=== PATIENT | female | born 1965 | race Hispanic/Latino ===

== ENCOUNTER → 2018-02-04 | Day surgery (SDC) | payer OTHER ==
[~2018-02-04] MED LIST: BENICAR5 MG PO; FENTANYL CITRATE/PF 100MCG/2 ML INJ ONE; HYOSCYAMINE SULFATE 0.5 MG/ML INJ ONE; LIDOCAINE HCL 2% LOCAL INJ 5 ML SDV VIAL INJ ONE; MIDAZOLAM HCL 2 MG/2 ML VIAL ONE; PROPOFOL IV EMULSION 10 MG/ML 50 ML VIAL ONE; VIT B12 INJ
[2018-02-04 17:00] VITALS: BP 134/88
--- NOTE | 2018-02-04 17:57 | Operative Report ---
DATE OF PROCEDURE: February 04, 2018 REFERRING PHYSICIAN: Dr. Art Stratton. PROCEDURE PERFORMED: Colonoscopy and polypectomy. INDICATIONS FOR COLONOSCOPY: Colorectal cancer screening. MEDICATION: Patient was done under MAC. Please see anesthesiologist's note. PROCEDURE: With the patient in the left lateral decubitus position, the flexible fiberoptic Olympus colonoscope was inserted into the rectum with ease and advanced all the way to the cecum. The scope was then withdrawn slowly, and the mucosa overlying the cecum, ascending colon and transverse colon appeared to be within normal limits. One polyp was hot biopsied from the descending colon. There was some diverticular disease in the sigmoid colon. One polyp was hot biopsied from the sigmoid. One minute hyperplastic-appearing polyp was hot biopsied from the rectum. The scope was then retroflexed into the distal rectum and small internal hemorrhoids were noted, none of which was actively bleeding. The scope was then straightened out. It was subsequently withdrawn. Patient tolerated the procedure well. IMPRESSION: 1. Descending colon polyp hot biopsied. 2. Diverticulosis. 3. Sigmoid colon polyp hot biopsied. 4. Rectal polyp hot biopsied. 5. Internal hemorrhoids, none actively bleeding. PLAN: Follow up histology. Initiate high-fiber low-fat diet. Initiate high-fiber supplement. Patient might benefit from a followup colonoscopy in 2 to 3 years considering her strong family history of colon cancer. Job#: [id number] EV cc:ART STRATTON MD
--- OUTSIDE RECORDS SUMMARY | 2018-02-12 12:06 | XMS REPORT | Clinical Summary ---
Author Author EDD[facility] Address Unknown Phone Unavailable Care Team Providers Care Water Pollution Control Inspector Name Role Phone PCP Unavailable Allergies Active Allergy Reactions Severity Noted Date Comments Sulfa (Sulfonamide 11/04/2012 hives Antibiotics) Current Medications Prescription Sig. Disp. Refills Start End Date Status Date olmesartan (BENICAR) 20 Take 1 tablet (20 mg 90 tablet 3 05/15/19 Active MG tablet total) by mouth daily. 15 rosuvastatin (CRESTOR) 10 Take 1 tablet (10 mg 90 tablet 2 12/28/19 12/28/19 Active MG tablet total) by mouth daily. 18 19 Active Problems Patient Care Coordination Note 24 years for Aung (mult name changes) Brother of PE 70 (different brother had Colon Cancer). Father healthy, Mother with diabetes and pancreatic cancer. Dr. Su Customer Account Representative, Mammo June PAP September 2017 Problem Noted Date Malaise 01/31/2018 Myalgia 01/31/2018 Pain of both shoulder joints 01/31/2018 Pure hypercholesterolemia 12/28/2017 Overview: For years, creeping up, last with Dr. Su. TL 224, HDL 71,(dropping) trig 146, LDL 124 (increasing) Started rosuvastatin Family history of pancreatic cancer 12/27/2017 Overview: Mother age 66 Family history of colon cancer 12/27/2017 Overview: Brother age 52, now 68. Thyroid nodule 12/27/2017 Overview: Found at work screen 7.3 x 4.2 mm (right side 11/06/2017 Thyroid US with nodules. Heterogenous. "consistent with thyroiditis" Negative Thyroid peroxidase The thyroid levels are all normal. They are on the lower side of normal. I see no reason to add a medication. We can check the ultrasound yearly for a while to be sure nodules are not growing. Lumbar facet arthropathy (HCC) 08/13/2013 Overview: Back Pain, Theodora GUSMAN. [facility] [place] Morning achiness Diverticulosis 08/13/2013 Overview: 2013, No sx (colonoscopy for abd Pain) Theodora Allen. Abdominal pain 08/13/2013 Overview: Migrated mod bilateral abd to back Colonoscopy negative. Dr. eRnzo Plasencia CT abd. At Patient's [place] Pelvic US By Dr. Su Ongoing sx, mold on and off, LBP and abd pain BMI 28.0-28.9,adult 08/13/2013 Overview: Weight has been up and down. As low as 162,, BMI as high as 29.95 2014 Essential hypertension 11/06/2012 Impaired glucose tolerance 11/06/2012 Encounters Date Type Specialty Care Team Description 01/31/2018 Office Visit Internal Medicine Pato Corrales MD Myalgia (Primary Dx);Malaise;Pain of both shoulder joints;Essential hypertension;Pure hypercholesterolemia;Impa ired glucose tolerance;Lumbar facet arthropathy (HCC) 01/31/2018 Telephone Internal Medicine Pato Corrales MD Appt 01/31/2018 01/07/2018 Telephone Internal Medicine Pato Corrales MD Results (US thyroid ) 01/04/2018 Hospital Radiology Pato Corrales MD Thyroid nodule Encounter 01/04/2018 Outside Orders Pato Corrales MD 12/27/2017 Office Visit Internal Medicine Pato Corrales MD Thyroid nodule (Primary Dx);Family history of pancreatic cancer;Family history of colon cancer;BMI 28.0-28.9,adult;Colon cancer screening;Diverticulosis of large intestine without hemorrhage;Periumbilical abdominal pain 12/19/2017 Telephone Internal Medicine Pato Corrales MD PCP after 02/03/2017 Immunizations Name Dates Previously Given Next Due Influenza TIV (IM) 01/28/2013 Family History Relation Name Status Comments Brother Alive x3 healthy Daughter Alive healthy Father Dementia (Age 92 yrs) Mother Pancreatic Cancer, HTN, DM (Age 67 yrs) Son Alive healthy Social History Tobacco Use Types Packs/Day Years Used Date Never Smoker Smokeless Tobacco: Never Used Alcohol Use Drinks/Week oz/Week Comments Yes rarely Sex Assigned at Date Recorded Not on file Last Filed Vital Signs Vital Sign Reading Time Taken Blood Pressure 124/72 01/31/2018 3:43 PM CDT Pulse 66 01/31/2018 3:43 PM CDT Temperature - - Respiratory Rate 14 12/27/2017 3:12 PM CDT Oxygen Saturation 99% 01/31/2018 3:43 PM CDT Inhaled Oxygen - - Concentration Weight 78.4 kg (172 lb 12.8 oz) 01/31/2018 3:43 PM CDT Height 165.1 cm (5' 5") 01/31/2018 3:43 PM CDT Body Mass Index 28.76 01/31/2018 3:43 PM CDT Plan of Treatment Date Type Specialty Care Team Description 05/10/2018 Office Visit Internal Medicine Pato Corrales MD [address] [facility] [address] [place], [place] [id number] Health Maintenance Due Date Last Done Comments INFLUENZA VACCINE 01/28/2018 Results * Thyroid peroxidase (TPO) antibody (01/08/2018 7:31 AM) Component Value Ref Range Thyroid Peroxidase (TPO) <1 <9 IU/mL Ab Specimen Performing Laboratory [facility] [place] [address] * TSH (01/08/2018 7:31 AM) Component Value Ref Range TSH 1.10 mIU/L Comment: Reference Range > or=20 Years0.40-4.50 Ranges First trimester0.26-2.66 Second trimester 0.55-2.73 Third trimester0.43-2.91 Specimen Performing Laboratory [facility] [address] [place] [address] * T4, free (01/08/2018 7:31 AM) Component Value Ref Range T4,Free (Direct) 1.1 0.8 - 1.8 ng/dL Specimen Performing Laboratory [facility] [address] [place] [address] * Ultrasound thyroid (01/04/2018 7:27 AM) Specimen Performing Laboratory GE RIS Narrative FINAL REPORT Thyroid ultrasound, today HISTORY: Thyroid nodule COMPARISON: None. FINDINGS: Grayscale and color Doppler imaging of the thyroid gland was performed. The right thyroid lobe measures 5.0 x 1.6 x 1.2 cm. The left thyroid lobe measures 4.2 x 1.6 x 1.2 cm. The isthmus measures 4 mm in thickness. There is mild, diffuse heterogeneity of the thyroid parenchyma. A hypoechoic, avascular nodule or cyst is present in the upper pole right lobe measuring 6 x 5 x 5 mm, without suspicious sonographic features. IMPRESSION: Heterogenous appearance of the thyroid gland suggestive of underlying thyroiditis. Signed: Cleveland Stein MD Report Verified Date/Time:01/04/2018 16:51:18 Reading Location: [address] Radiology Reading Room Procedure Note Interface, External Ris In - 01/04/2018 4:53 PM CDT FINAL REPORT Thyroid ultrasound, today HISTORY: Thyroid nodule COMPARISON: None. FINDINGS: Grayscale and color Doppler imaging of the thyroid gland was performed. The right thyroid lobe measures 5.0 x 1.6 x 1.2 cm. The left thyroid lobe measures 4.2 x 1.6 x 1.2 cm. The isthmus measures 4 mm in thickness. There is mild, diffuse heterogeneity of the thyroid parenchyma. A hypoechoic, avascular nodule or cyst is present in the upper pole right lobe measuring 6 x 5 x 5 mm, without suspicious sonographic features. IMPRESSION: Heterogenous appearance of the thyroid gland suggestive of underlying thyroiditis. Signed: Cleveland Stein MD Report Verified Date/Time: 01/04/2018 16:51:18 Reading Location: [address] Radiology Reading Room after 02/03/2017
--- OUTSIDE RECORDS SUMMARY | 2018-02-12 12:06 | XMS REPORT ---
Author Author [facility] Address Unknown Phone Unavailable Care Team Providers Care Casino Worker Name Role Phone Unavailable Unavailable Problems This patient has no known problems. Allergies, Adverse Reactions, Alerts This patient has no known allergies or adverse reactions. Medications This patient has no known medications. Results Test Description Test Time Test Comments Text Results Atomic Results Result Comments U/S, THYROID 2018-01-04 16:51:00 Reason for Exam:->thyroid nodule FINAL REPORT Thyroid ultrasound, today HISTORY: Thyroid nodule COMPARISON: None. FINDINGS:Grayscale and color Doppler imaging of the thyroid [...] x 5 mm, without suspicious sonographic features. IMPRESSION:Heterogenous appearance of the thyroid gland suggestive of underlying thyroiditis. Signed: Cleveland Chou MDReport Verified Date/Time: 01/04/2018 16:51:18 Reading Location: [address] Radiology Reading Room
== END | disposition home or self-care (01) ==
LOC: OR 13:41
PROVIDERS: ATTEND Internal Medicine Gastroenterology
DX: Z12.11 Encounter for screening for malignant neoplasm of colon (principal); D12.4 Benign neoplasm of descending colon; K62.1 Rectal polyp; K59.00 Constipation, unspecified; K57.30 Diverticulosis of large intestine without perforation or abscess without bleeding; K64.8 Other hemorrhoids; I10 Essential (primary) hypertension; R42 Dizziness and giddiness; Z88.2 Allergy status to sulfonamides; Z68.29 Body mass index [BMI] 29.0-29.9, adult; Z80.0 Family history of malignant neoplasm of digestive organs
CPT/HCPCS: 45384; 81025; J1980; J2001; J2250

== ENCOUNTER → 2018-04-24 | Outpatient (CLI) | payer OTHER ==
[~2018-04-24] MED LIST changes: -FENTANYL CITRATE/PF 100MCG/2 ML INJ ONE; -HYOSCYAMINE SULFATE 0.5 MG/ML INJ ONE; -LIDOCAINE HCL 2% LOCAL INJ 5 ML SDV VIAL INJ ONE; -MIDAZOLAM HCL 2 MG/2 ML VIAL ONE; -PROPOFOL IV EMULSION 10 MG/ML 50 ML VIAL ONE
--- NOTE | 2018-04-24 16:48 | Diagnostic Imaging Report ---
BILATERAL HANDS 3 - views HISTORY: Pain COMPARISON: None FINDINGS: No displaced fracture. Osseous alignment is within normal limits. Mild degenerative changes of the DIP joints bilaterally. Degenerative changes of the right carpometacarpal joint. Tiny well-corticated ossicle projected lateral to the right first carpometacarpal joint; he may reflect prior avulsion injury. IMPRESSION: Degenerative osteoarthrosis. Signed by: Dr. Jorge Alberto Loco M.D. on 04/24/2018 4:44 PM
== END ==
LOC: RAD 15:58
PROVIDERS: ATTEND Internal Medicine Rheumatology
DX: M79.642 Pain in left hand (principal); M79.641 Pain in right hand

== ENCOUNTER → 2020-12-31 | Day surgery (SDC) | payer OTHER ==
[2020-12-31 12:40] VITALS: BP 105/89
== END | disposition home or self-care (01) ==
LOC: OR 09:40
PROVIDERS: ATTEND Internal Medicine Gastroenterology
DX: Z12.11 Encounter for screening for malignant neoplasm of colon (principal); K63.5 Polyp of colon; K57.30 Diverticulosis of large intestine without perforation or abscess without bleeding; K64.8 Other hemorrhoids; I10 Essential (primary) hypertension; R00.1 Bradycardia, unspecified; E78.5 Hyperlipidemia, unspecified; Z88.2 Allergy status to sulfonamides; Z01.810 Encounter for preprocedural cardiovascular examination; Z01.812 Encounter for preprocedural laboratory examination; Z20.822 Contact with and (suspected) exposure to COVID-19; Z80.0 Family history of malignant neoplasm of digestive organs
CPT/HCPCS: 45380; 93005; U0002; 45378

== ENCOUNTER → 2021-12-01 | Outpatient (CLI) | payer OTHER | LOC: US 07:36 | PROVIDERS: ATTEND Family Medicine | DX: E04.1 Nontoxic single thyroid nodule (principal) | CPT/HCPCS: 76536 ==

== ENCOUNTER → 2022-08-14 | Outpatient (CLI) | payer OTHER | LOC: US 07:48 | PROVIDERS: ATTEND Internal Medicine Gastroenterology | DX: R10.84 Generalized abdominal pain (principal); K76.0 Fatty (change of) liver, not elsewhere classified | CPT/HCPCS: 76700; 76856 ==

== ENCOUNTER → 2024-05-02 | Day surgery (SDC) | payer OTHER ==
[~2024-05-02] MED LIST changes: +B-121000 MC2; +LACTATED RINGER'S 1,000 ML ONE; +LIDOCAINE HCL 2% LOCAL INJ 5 ML SDV VIAL INJ ONE; +MAGNESIUM GLYC100 MG; +MULTI-VITAMIN1 EACH PO; +PROPOFOL IV EMULSION 50 ML IV ONE; +ZINC PO
[2024-05-02 09:58] VITALS: TEMP 97.7
[2024-05-02 10:20] VITALS: BP 120/71; PULSE 64; RESP 18; O2SAT 99
== END | disposition home or self-care (01) ==
LOC: OR 08:08
PROVIDERS: ATTEND Internal Medicine Gastroenterology
DX: Z12.11 Encounter for screening for malignant neoplasm of colon (principal); Z86.0100 Personal history of colon polyps, unspecified; K57.30 Diverticulosis of large intestine without perforation or abscess without bleeding; K64.8 Other hemorrhoids; K76.0 Fatty (change of) liver, not elsewhere classified; I10 Essential (primary) hypertension; E78.5 Hyperlipidemia, unspecified; Z88.2 Allergy status to sulfonamides; Z01.810 Encounter for preprocedural cardiovascular examination; Z79.899 Other long term (current) drug therapy; Z80.0 Family history of malignant neoplasm of digestive organs
CPT/HCPCS: 45378; 93005; J2003; J2704; J7121